=== PATIENT | male | born 1975 | race African-American/Black ===

== ENCOUNTER 2021-04-20 11:18 | Emergency (ER) | payer OTHER ==
[~2021-04-20] VITALS: Ht 167.6 cm; Wt 89.0 kg
[2021-04-20] MEDS ORDERED: AMLO25TA PO (11:42)
--- NOTE | 2021-04-20 12:13 | REP ---
INDICATION: inability to raise arm; pain in shoulder COMPARISON: None. TECHNIQUE: Three views left shoulder. FINDINGS: No acute fracture is seen. The distal end of the clavicle appears slightly elevated which may indicate mild AC joint separation. No intrinsic osseous pathology is seen. IMPRESSION: No fracture seen. Possible mild AC joint separation. <Electronically signed by Gagan Smith > 04/20/21 [id number]
[2021-04-20] MEDS ORDERED: IBUPROFEN 800 MG TAB PO ONE (12:35)
[2021-04-20 13:48] VITALS: BP 132/100
== END 2021-04-20 14:19 | disposition home or self-care (01) ==
LOC: M ED 11:18
DX: S43.102A Unspecified dislocation of left acromioclavicular joint, initial encounter (principal); M25.512 Pain in left shoulder; X50.0XXA Overexertion from strenuous movement or load, initial encounter; Y92.89 Other specified places as the place of occurrence of the external cause; Y93.B3 Activity, free weights; Y99.1 Military activity; I10 Essential (primary) hypertension; F17.200 Nicotine dependence, unspecified, uncomplicated; Z91.89 Other specified personal risk factors, not elsewhere classified; Z91.013 Allergy to seafood

== ENCOUNTER → 2024-01-17 | Outpatient (CLI) | payer OTHER ==
[~2024-01-17] MED LIST: AMLO25TA PO
== END ==
LOC: M RAD 14:42
PROVIDERS: ATTEND Physician Assistant
DX: R06.00 Dyspnea, unspecified (principal)

== ENCOUNTER → 2024-03-11 | Outpatient (CLI) | payer OTHER ==
[~2024-03-11] MED LIST changes: +METHACHOLINE KIT (6 VIAL.NEB PREMIX) INH ONE
== END ==
LOC: M CARPUL 09:48
PROVIDERS: ATTEND Physician Assistant
DX: R06.00 Dyspnea, unspecified (principal)
CPT/HCPCS: 94070; J7674